=== PATIENT | male | born 1990 | race Caucasian/White ===

== ENCOUNTER → 2016-06-30 | Outpatient (CLI) | payer OTHER ==
[2016-06-30 11:14] LABS: ALANINE AMINOTRANSFERASE 89 Units/L (12-78); ALBUMIN 4.2 g/dL (3.4-5.0); ALKALINE PHOSPHATASE 78 Units/L (46-116); AMYLASE 35 Units/L (25-115); ASPARTATE AMINO TRANSFERASE 32 Units/L (15-37); BLOOD UREA NITROGEN 11 mg/dL (7-18); CALCIUM 9.5 mg/dL (8.5-10.1); CARBON DIOXIDE 28.4 mmol/L (21-32); CHLORIDE 105 mmol/L (98-107); CREATININE 1.09 mg/dL (0.70-1.30); GLUCOSE 94 mg/dL (65-99); LIPASE 107 Units/L (73-393); SODIUM 143 mmol/L (136-145); TOTAL PROTEIN 7.7 g/dL (6.4-8.2); eGFR BLACK RACES > 60 (>60); eGFR NON BLACK RACES > 60 (>60)
[2016-06-30 11:16] LABS: BASOPHILS % (AUTO) 0.3 % (0.2-1.0); EOSINOPHILS # (AUTO) 0.3 x10^3/uL (0.0-0.2); EOSINOPHILS % (AUTO) 3.8 % (0.9-2.9); HEMATOCRIT 47.6 % (42.0-54.0); HEMOGLOBIN 16.4 g/dL (13.5-18.0); LYMPHOCYTES # (AUTO) 2.2 X10^3/uL (1.3-2.9); MEAN CORPUSCULAR HGB CONC 34.5 g/dL (33.0-35.0); MEAN CORPUSCULAR VOLUME 84.2 fL (80.0-100.0); MEAN PLATELET VOLUME 7.4 fL (7.4-11.0); MONOCYTES # (AUTO) 0.4 x10^3/uL (0.3-0.8); MONOCYTES % (AUTO) 5.4 % (0.0-13.0); NEUTROPHILS # (AUTO) 4.6 x10^3/uL (2.2-4.8); NEUTROPHILS % (AUTO) 61.5 % (42.0-75.0); PLATELET COUNT 280 X10^3/uL (150.0-450.0); RED BLOOD COUNT 5.66 X10^6/uL (4.7-6.0); RED CELL DISTRIBUTION WIDTH 12.9 % (11.6-16.5); WHITE BLOOD COUNT 7.5 X10^3/uL (3.6-10.0)
--- NOTE | 2016-06-30 11:29 | US ---
Examination: Abdominal ultrasound. Clinical History: Abdominal pain, nausea. Technique: Real-time grayscale ultrasound was used to evaluate the upper abdomen. Comparison: None available. Findings: The gallbladder is suboptimally distended with no definite cholelithiasis, gallbladder wall thickeni ng or pericholecystic fluid noted. The common bile duct measures 2 mm in diameter and is within normal limits. No intrahepatic biliary ductal dilatation is noted. The liver is diffusely increased in echogenicity with attenuation of the ultrasound beam seen prop setter iorly, consistent with diffuse fatty infiltration of the liver. No focal hepatic mass is noted. The pancreas is obscured by bowel gas and could not be adequately evaluated. The right kidney measures 11.8 cm in length and is normal in echogenicity with no focal mass, hydron ephrosis or nephrolithiasis noted. Impression: 1. Diffuse fatty infiltration of the liver. Reported By:
== END ==
LOC: RAD 10:28
PROVIDERS: ATTEND Nurse Practitioner Family
DX: R10.84 Generalized abdominal pain (principal); R11.0 Nausea
CPT/HCPCS: 36415; 76705; 80053; 82150; 83690; 85025; 86677

== ENCOUNTER 2021-03-25 11:23 | Observation (INO) ==
[2021-03-25] MEDS ORDERED: TUSSIONEX PENNKINETIC SUSP PO PRN (13:19)
[2021-03-25] MEDS ORDERED: PHARMACY CONSULT - IVERMECTIN XX SCH (13:19)
[2021-03-25] MEDS: PULMICORT NEB TX 0.5 MG NEB SCH ×2 (13:48→21:55)
[2021-03-25 13:52] LABS: ABG ALLEN TEST POS; ABG BASE EXCESS 0.8 mmol/L (-2.0-2.0); ABG HCO3 25.3 mmol/L (22-26)
[2021-03-25 13:57] VITALS: BMI 36.5
[2021-03-25 13:59] LABS: BASOPHILS % (AUTO) 0 % (0.2-1.0); HEMATOCRIT 50.1 % (42.0-54.0); HEMOGLOBIN 17.1 g/dL (13.5-18.0); LYMPHOCYTES # (AUTO) 0.2 X10^3/uL (1.3-2.9); LYMPHOCYTES % (AUTO) 2.6 % (21.0-51.0); MEAN CORPUSCULAR HEMOGLOBIN 29.5 pg (27.0-34.0); MEAN CORPUSCULAR HGB CONC 34.1 g/dL (33.0-35.0); MEAN CORPUSCULAR VOLUME 86.4 fL (80.0-100.0); MEAN PLATELET VOLUME 7.1 fL (7.4-11.0); MONOCYTES # (AUTO) 0.1 x10^3/uL (0.3-0.8); MONOCYTES % (AUTO) 1.8 % (0.0-13.0); NEUTROPHILS # (AUTO) 8.1 x10^3/uL (2.2-4.8); NEUTROPHILS % (AUTO) 95.6 % (42.0-75.0); RED CELL DISTRIBUTION WIDTH 13.9 % (11.6-16.5); WHITE BLOOD COUNT 8.5 X10^3/uL (3.6-10.0)
[2021-03-25] MEDS: DUONEB 0.5 MG/3 MG (3 mL) NEB SCH ×2 (14:00→21:55)
[2021-03-25] MEDS ORDERED: NS 1/2 1,000 ML IV 1,000 ML IV ONE (14:09)
[2021-03-25 14:11] LABS: ALANINE AMINOTRANSFERASE 31 Units/L (12-78); ALKALINE PHOSPHATASE 42 Units/L (46-116); ASPARTATE AMINO TRANSFERASE 23 Units/L (15-37); BLOOD UREA NITROGEN 16 mg/dL (7-18); CARBON DIOXIDE 28.8 mmol/L (21-32); CHLORIDE 104 mmol/L (98-107); COR CA(FOR HYPOALB) 8.8 mg/dL (8.5-10.1); COR NA(FOR HYPERGLY) 142 mmol/L (136-145); CREATININE 1.02 mg/dL (0.70-1.30); SODIUM 141 mmol/L (136-145); TOTAL PROTEIN 6.7 g/dL (6.4-8.2); eGFR NON BLACK RACES > 60 (>60)
[2021-03-25] MEDS: LEVAQUIN PREMIX IV 750 MG 750 MG/150 ML BAG IV SCH (14:15)
[2021-03-25] MEDS: NS 1/2 1,000 ML IV 1,000 ML IV SCH (14:15)
[2021-03-25] MEDS: VITAMIN A PO SCH (14:15)
[2021-03-25] MEDS: SOLU-Medrol 40 MG VIAL IVP SCH ×3 (14:15→21:00)
[2021-03-25] MEDS: VITAMIN C PO SCH ×3 (14:16→21:00)
[2021-03-25] MEDS: IVERMECTIN PO SCH (14:16)
[2021-03-25] MEDS: LUVOX PO SCH ×2 (14:16→21:00)
[2021-03-25 14:19] LABS: BAND NEUTROPHILS % 3 % (0-10); PLATELET MORPHOLOGY COMMENT NORMAL (NORMAL)
[2021-03-25] MEDS: ZINC SULFATE PO SCH ×2 (14:19→21:00)
--- NOTE | 2021-03-25 15:38 | RAD ---
HISTORYCOVID+, COUGH, SOBSTUDYCHEST, 1 VIEWCOMPARISONNo recent comparison studiesTECHNIQUEPortable chest radiographFINDINGSThe lungs are hypoinflated. Peribronchial thickening is observed. No organized, radiodense airspace consolidation is appreciated. Subtle peribronchial opacities are seen within the left parahilar region and left lung base. The pleural spaces are clear. No free air or pneumothorax. Heart size is normal.IMPRESSIONLow lung volumes with central bronchial and peribronchial inflammatory changes in the setting of COVID-19 infection.No organized, consolidating infiltrates are identified at this time.Electronically signed by: DAKOTA GUZMÁN (Mar 25, 2021 15:38:17)
[2021-03-25] MEDS ORDERED: REMDESIVIR 200 MG in NS 250 ML IV 250 ML IV ONE (15:51)
[2021-03-25] MEDS: INDERAL LA 60 MG CAP PO SCH (17:33)
[2021-03-25] MEDS: FLONASE NASAL SPRAY ENOSTRIL SCH (21:00)
[2021-03-25] MEDS: CRESTOR TAB 10 MG PO SCH (21:00)
[2021-03-26] MEDS: NS 1/2 1,000 ML IV 1,000 ML IV SCH ×3 (06:01→17:27)
[2021-03-26] MEDS: SOLU-Medrol 40 MG VIAL IVP SCH ×3 (06:02→21:38)
[2021-03-26 06:15] LABS: BASOPHILS % (AUTO) 0.1 % (0.2-1.0); HEMOGLOBIN 15.8 g/dL (13.5-18.0); LYMPHOCYTES # (AUTO) 0.3 X10^3/uL (1.3-2.9); LYMPHOCYTES % (AUTO) 4.6 % (21.0-51.0); MEAN CORPUSCULAR HEMOGLOBIN 29.3 pg (27.0-34.0); MEAN CORPUSCULAR HGB CONC 33.7 g/dL (33.0-35.0); MONOCYTES # (AUTO) 0.4 x10^3/uL (0.3-0.8); NEUTROPHILS # (AUTO) 6.4 x10^3/uL (2.2-4.8); NEUTROPHILS % (AUTO) 90.3 % (42.0-75.0); RED CELL DISTRIBUTION WIDTH 13.9 % (11.6-16.5); WHITE BLOOD COUNT 7.1 X10^3/uL (3.6-10.0)
[2021-03-26] MEDS: DUONEB 0.5 MG/3 MG (3 mL) NEB SCH ×2 (06:42→13:45)
[2021-03-26 06:46] LABS: ALANINE AMINOTRANSFERASE 30 Units/L (12-78); ALBUMIN 2.7 g/dL (3.4-5.0); ALKALINE PHOSPHATASE 36 Units/L (46-116); ASPARTATE AMINO TRANSFERASE 23 Units/L (15-37); BLOOD UREA NITROGEN 14 mg/dL (7-18); CALCIUM 8.1 mg/dL (8.5-10.1); CARBON DIOXIDE 29.9 mmol/L (21-32); CHLORIDE 104 mmol/L (98-107); COR CA(FOR HYPOALB) 9.1 mg/dL (8.5-10.1); COR NA(FOR HYPERGLY) 140 mmol/L (136-145); CREATININE 1.04 mg/dL (0.70-1.30); SODIUM 139 mmol/L (136-145); TOTAL PROTEIN 6.2 g/dL (6.4-8.2); eGFR NON BLACK RACES > 60 (>60)
--- NOTE | 2021-03-26 07:09 | RAD ---
HISTORYCOVID-19 SOBSTUDYPortable AP chestCOMPARISONFebruary 2021FINDINGSStable-normal heart size and contour. Similar appearance of indistinct and nonspecific perihilar interstitial prominence without evidence for airspace component. The pleural spaces remain well defined without fluid collection.IMPRESSIONNo change. Subtle bilateral perihilar findings consistent with inflammatory process. No segmental or lobar pneumonia identified.Electronically signed by: JOSEFINA SCHAFFER (Mar 26, 2021 07:09:01)
[2021-03-26 07:56] LABS: PLATELET MORPHOLOGY COMMENT NORMAL (NORMAL)
[2021-03-26] MEDS: PULMICORT NEB TX 0.5 MG NEB SCH (08:57)
[2021-03-26] MEDS: VITAMIN C PO SCH ×4 (08:59→20:09)
[2021-03-26] MEDS: FLONASE NASAL SPRAY ENOSTRIL SCH ×2 (08:59→20:10)
[2021-03-26] MEDS: LEVAQUIN PREMIX IV 750 MG 750 MG/150 ML BAG IV SCH (08:59)
[2021-03-26] MEDS: IVERMECTIN PO SCH (08:59)
[2021-03-26] MEDS: VITAMIN A PO SCH (09:00)
[2021-03-26] MEDS: MOBIC TAB 15 MG PO SCH (09:00)
[2021-03-26] MEDS: LUVOX PO SCH ×2 (09:00→20:08)
[2021-03-26] MEDS: ZINC SULFATE PO SCH ×2 (09:01→20:08)
[2021-03-26] MEDS ORDERED: NS 1/2 1,000 ML IV 1,000 ML IV ONE ×2 (09:15→22:23)
[2021-03-26] MEDS: INDERAL LA 60 MG CAP PO SCH (09:18)
[2021-03-26] MEDS ORDERED: BENADRYL INJ 50 MG VIAL IVP ONE (10:09)
[2021-03-26] MEDS ORDERED: SOTROVIMAB (EUA) 500 MG, DRUG FILTER EXTENSION SET * 1 EA in NS 250 ML IV 250 ML IV ONE ×2 (10:09)
--- NOTE | 2021-03-26 10:43 | DR.UPDATE ---
H&P Update History and Physical Update: History and Physical reviewed and patient examined. Changes noted: Yes with the following: IS A 30 YEAR OLD PATIENT OF OURS. HE HAS BEEN TREATED IN THE OFFICE SINCE 03/21/20 FOR COVID-19. HE PRESENTED FOR FOLLOW UP TODAY WITH REPORTS OF INCREASED SHORTNESS OF BREATH AND COUGH. HE HAS TAKEN DOXYCYCLINE 100MG PO BID, FLUVOXAMINE 25MG DAILY, A MEDROL DOSEPACK, AND LEVAQUIN 750MG DAILY. HE DENIES IMPROVEMENT IN SYMPTOMS DESPITE COMPLIANCE WITH MEDICATIONS. HIS PMH INCLUDES HY PERLIPIDEMIA, HTN, SLEEP APNEA, BMI >30, CHOLECYSTECTOMY, TONSILLECTOMY, AND HERNIA REPAIR. HE WAS ADMITTED TO THE HOSPITAL FOR FURTHER EVALUATION AND TREATMENT OF BRONCHITIS DUE TO COVID-19, FAILED OUTPATIENT TREATMENT. ON ARRIVAL TO THE HOSPITAL, HIS VITALS WERE 98.5-107-22-95%RA-148/84. LABS WERE OBTAINED. WBC 8.5, HGB 17.1, HCT 50.1, D-DIMER 0.29, SODIUM 141, POTASSIUM 3.9, BUN 16, CREATININE 1.02, GLUCOSE 133, CALCIUM 8.0, ALK PHOS 42, CRP 35.50, ALBUMIN 3.0. ABG OBTAINED AND REVEALED: PH 7.420, PC02 39, P02 64, HC03 25.3, 02 SAT 92, A-A GRADIENT 37, FI02 21.0. BLOOD CULTURES WERE SET UP. A CHEST XRAY WAS OBTAINED AND REVEALED: Low lung volumes with central bronchial and peribronchial inflammatory changes in the setting of COVID-19 infection. No organized, consolidating infiltrates are identified at this time. HE WAS STARTED ON 1/2NS AT 75 ML/HR, LEVAQUIN 750 ML/HR, SOLU-MEDROL 80ML IV Q8H, DUONEBS TID, PULMICORT NEBS BID, VITAMIN C 1G QID, LUVOX 50MG PO BID, IVERMECTIN 42MG PO DAILY, VITAMIN A 10,000 PO DAILY, ZINC SULFATE 220MG PO BID, AND HIS HOME MEDICATIONS WERE RESUMED. WE WILL ADMINISTER SOTROVIMAB 500MG IV X 1 DOSE. OTHERWISE, WE WILL FOLLOW UP WITH AM LABS AND CONTINUE TO MONITOR. TIME SPENT ON CLINICAL ASSESSMENT, REVIEWING LABS AND IMAGING, DECISION MAKING, AND DOCUMENTATION GREATER THAN 75 MINUTES. H&P Reviewed: Yes Patient was examined?: Yes
[2021-03-26] MEDS ORDERED: BENADRYL INJ 50 MG VIAL ONE (11:40)
[2021-03-26] MEDS ORDERED: STERILE WATER IRRIGATION IR ONE (11:58)
[2021-03-26] MEDS: CRESTOR TAB 10 MG PO SCH (20:09)
[2021-03-27] MEDS: NS 1/2 1,000 ML IV 1,000 ML IV SCH ×2 (01:23→07:47)
[2021-03-27] MEDS: DUONEB 0.5 MG/3 MG (3 mL) NEB SCH ×3 (03:53→13:24)
[2021-03-27] MEDS: PULMICORT NEB TX 0.5 MG NEB SCH ×2 (03:53→09:29)
[2021-03-27] MEDS: SOLU-Medrol 40 MG VIAL IVP SCH ×2 (05:06→13:34)
[2021-03-27 05:30] LABS: BASOPHILS % (AUTO) 0 % (0.2-1.0); HEMATOCRIT 43.5 % (42.0-54.0); HEMOGLOBIN 14.7 g/dL (13.5-18.0); LYMPHOCYTES # (AUTO) 0.4 X10^3/uL (1.3-2.9); LYMPHOCYTES % (AUTO) 4.1 % (21.0-51.0); MEAN CORPUSCULAR HEMOGLOBIN 29.2 pg (27.0-34.0); MEAN CORPUSCULAR HGB CONC 33.8 g/dL (33.0-35.0); MEAN CORPUSCULAR VOLUME 86.5 fL (80.0-100.0); MONOCYTES # (AUTO) 0.3 x10^3/uL (0.3-0.8); MONOCYTES % (AUTO) 3.9 % (0.0-13.0); NEUTROPHILS # (AUTO) 8.1 x10^3/uL (2.2-4.8); RED BLOOD COUNT 5.03 X10^6/uL (4.7-6.0); RED CELL DISTRIBUTION WIDTH 13.9 % (11.6-16.5); WHITE BLOOD COUNT 8.8 X10^3/uL (3.6-10.0)
[2021-03-27 05:47] LABS: ALANINE AMINOTRANSFERASE 26 Units/L (12-78); ALBUMIN 2.3 g/dL (3.4-5.0); ALKALINE PHOSPHATASE 33 Units/L (46-116); ASPARTATE AMINO TRANSFERASE 20 Units/L (15-37); BLOOD UREA NITROGEN 17 mg/dL (7-18); CALCIUM 7.9 mg/dL (8.5-10.1); CHLORIDE 106 mmol/L (98-107); COR CA(FOR HYPOALB) 9.3 mg/dL (8.5-10.1); COR NA(FOR HYPERGLY) 141 mmol/L (136-145); CREATININE 0.84 mg/dL (0.70-1.30); SODIUM 140 mmol/L (136-145); TOTAL PROTEIN 5.5 g/dL (6.4-8.2); eGFR NON BLACK RACES > 60 (>60)
[2021-03-27 06:54] LABS: BAND NEUTROPHILS % 3 % (0-10); PLATELET MORPHOLOGY COMMENT NORMAL (NORMAL)
--- NOTE | 2021-03-27 07:22 | RAD ---
[facility] chestCOMPARISONFebruary 2021FINDINGSHeart size is similar and upper normal. There is slight interval increase in indistinct bilateral para densities, left greater than right. No airspace consolidation, pneumothorax or pleural fluid demonstrated.IMPRESSIONWith the given history of COVID-19, the radiographic findings are likely related to increasing atypical pneumonia pattern. No additional abnormality is otherwise noted.Electronically signed by: JOSEFINA SCHAFFER (Mar 27, 2021 07:20:55)
[2021-03-27] MEDS ORDERED: BENADRYL INJ 50 MG VIAL IVP ONE ×2 (07:48→09:00)
[2021-03-27] MEDS: VITAMIN C PO SCH ×2 (08:01→13:33)
[2021-03-27] MEDS: VITAMIN A PO SCH (08:01)
[2021-03-27] MEDS: ZINC SULFATE PO SCH (08:01)
[2021-03-27] MEDS: LUVOX PO SCH (08:01)
[2021-03-27] MEDS: FLONASE NASAL SPRAY ENOSTRIL SCH (08:01)
[2021-03-27] MEDS: LEVAQUIN PREMIX IV 750 MG 750 MG/150 ML BAG IV SCH (08:01)
[2021-03-27] MEDS: MOBIC TAB 15 MG PO SCH (08:01)
[2021-03-27] MEDS ORDERED: SOTROVIMAB (EUA) 500 MG, DRUG FILTER EXTENSION SET * 1 EA in NS 250 ML IV 250 ML IV NR ×2 (09:00)
[2021-03-27] MEDS ORDERED: TYLENOL 325 MG TAB PO ONE (09:15)
[2021-03-27] MEDS ORDERED: BENADRYL INJ 50 MG VIAL ONE (09:55)
[2021-03-27] MEDS ORDERED: DRUG FILTER EXTENSION SET ONE (09:56)
[2021-03-27] MEDS: IVERMECTIN PO SCH (09:59)
[2021-03-27] MEDS: INDERAL LA 60 MG CAP PO SCH (09:59)
[2021-03-27] MEDS ORDERED: STERILE WATER IRRIGATION IR ONE (13:05)
[2021-03-27 13:41] VITALS: BP 120/68
== END 2021-03-27 15:45 | disposition home or self-care (01) ==
LOC: MED/SURG
PROVIDERS: ADMIT Internal Medicine; ATTEND Internal Medicine
DX: E78.2 Mixed hyperlipidemia; R06.02 Shortness of breath; I10 Essential (primary) hypertension; U07.1 COVID-19; J20.8 Acute bronchitis due to other specified organisms; R79.82 Elevated C-reactive protein (CRP)

== ENCOUNTER 2021-04-08 11:43 | Observation (INO) ==
[2021-04-08] MEDS: PULMICORT NEB TX 0.5 MG NEB SCH ×2 (14:25→21:24)
[2021-04-08] MEDS ORDERED: NS 1/2 1,000 ML IV 1,000 ML IV ONE (14:46)
[2021-04-08] MEDS: VSL#3 PO SCH (14:55)
[2021-04-08] MEDS: NORCO 10/325 TAB PO PRN (14:55)
[2021-04-08] MEDS: TESSALON PERLES PO SCH ×2 (14:56→22:27)
[2021-04-08] MEDS: NS 1/2 1,000 ML IV 1,000 ML IV SCH (14:56)
[2021-04-08] MEDS: LEVAQUIN PREMIX IV 750 MG 750 MG/150 ML BAG IV SCH (14:56)
[2021-04-08] MEDS: FORTAZ or TAZICEF VIAL INJ 1 G in NS 100 ML IV 100 ML IV SCH ×2 (14:56→21:21)
[2021-04-08] MEDS: ROBITUSSIN DM PO SCH ×3 (14:56→20:43)
[2021-04-08] MEDS ORDERED: FORTAZ or TAZICEF VIAL INJ IVP SCH (15:00)
--- NOTE | 2021-04-08 15:01 | RAD ---
HISTORYPneumoniaSTUDYChest AP [id number]/07/2022FINDINGSThe heart is within normal limits in size. The shani are normal. There is some subtle ground-glass infiltrates residual in the right upper lobe. Remainder of the lung covarrubias are clear. No pleural effusion or pneumothorax is identified. Bony thorax is unremarkable.IMPRESSIONSmall residual ground-glass infiltrate right upper lobe. The remainder of the lung covarrubias are now clearElectronically signed by: JAIRO LONGORIA (Apr 08, 2021 14:58:46)
[2021-04-08 15:03] LABS: ABG BASE EXCESS 6.4 mmol/L (-2.0-2.0)
[2021-04-08 15:04] LABS: ABG ALLEN TEST POS; ABG HCO3 30.5 mmol/L (22-26)
[2021-04-08 15:12] LABS: BASOPHILS % (AUTO) 0.2 % (0.2-1.0); EOSINOPHILS # (AUTO) 0.2 x10^3/uL (0.0-0.2); EOSINOPHILS % (AUTO) 1.6 % (0.9-2.9); HEMATOCRIT 49.6 % (42.0-54.0); HEMOGLOBIN 16.8 g/dL (13.5-18.0); LYMPHOCYTES # (AUTO) 1.2 X10^3/uL (1.3-2.9); MEAN CORPUSCULAR HEMOGLOBIN 29.8 pg (27.0-34.0); MEAN CORPUSCULAR HGB CONC 33.9 g/dL (33.0-35.0); MEAN CORPUSCULAR VOLUME 87.8 fL (80.0-100.0); MEAN PLATELET VOLUME 7.1 fL (7.4-11.0); MONOCYTES # (AUTO) 0.8 x10^3/uL (0.3-0.8); NEUTROPHILS # (AUTO) 7.4 x10^3/uL (2.2-4.8); NEUTROPHILS % (AUTO) 77.2 % (42.0-75.0); RED BLOOD COUNT 5.65 X10^6/uL (4.7-6.0); RED CELL DISTRIBUTION WIDTH 14.2 % (11.6-16.5); WHITE BLOOD COUNT 9.6 X10^3/uL (3.6-10.0)
[2021-04-08 15:33] LABS: ALANINE AMINOTRANSFERASE 166 Units/L (12-78); ALBUMIN 2.8 g/dL (3.4-5.0); ALKALINE PHOSPHATASE 52 Units/L (46-116); ASPARTATE AMINO TRANSFERASE 55 Units/L (15-37); BLOOD UREA NITROGEN 14 mg/dL (7-18); CALCIUM 7.9 mg/dL (8.5-10.1); CARBON DIOXIDE 31.4 mmol/L (21-32); CHLORIDE 101 mmol/L (98-107); CKMB % 1.3 % (<4); COR CA(FOR HYPOALB) 8.9 mg/dL (8.5-10.1); CREATINE KINASE 94 Units/L (39-308); CREATINE KINASE MB 1.2 ng/mL (0-4.0); SODIUM 138 mmol/L (136-145); TOTAL PROTEIN 5.9 g/dL (6.4-8.2); eGFR NON BLACK RACES > 60 (>60)
[2021-04-08] MEDS: DUONEB 0.5 MG/3 MG (3 mL) NEB SCH ×2 (16:19→21:24)
--- NOTE | 2021-04-08 16:45 | DR.UPDATE ---
H&P Update History and Physical Update: History and Physical reviewed and patient examined. Changes noted: Yes with the following: WAS RECENTLY HOSPITALIZED FOR TREATMENT OF BRONCHITIS DUE TO COVID-19. HE WAS HOSPITALIZED FROM 03/25-03/27. WHILE IN THE HOSPITAL, HE WAS GIVEN THE SOTROVIMAB MONOCLONAL ANTIBODY INFUSION. HE WAS SENT HOME FROM THE HOSPITAL ON A MEDROL DOSEPACK, FLUVOXAMINE 50MG PO BID, TESSALON PERLES 200MG TID, LEVAQUIN 750MG PO DAILY, PULMICORT NEB [place] BID, AND DUONEBS TID. HE PRESENTED TO THE OFF ICE TODAY WITH REPORTS OF WORSENING SHORTNESS OF BREATH, COUGH, AND DECREASED OXYGEN SATURATIONS, DESPITE COMPLIANCE WITH MEDICATIONS. HE REPORTS THAT HIS OXYGEN SATURATIONS DROP TO THE UPPER 70S AT TIMES WHILE ON ROOM AIR. PATIENT WAS READMITTED TO THE HOSPITAL FOR FURTHER EVALUATION AND TREATMENT OF BRONCHOPNEUMONIA, HYPOXIA, POST COVID SYNDROME. ON ADMISSION, WE WILL OBTAIN LABS, ABG, CHEST XRAY, CHEST CTA. WE WILL START 1/2NS AT 75 ML/HR, LEVAQUIN 750MG IV DAILY, FORTAZ 1G IV TID, SOLU-MEDROL 80MG IV Q8H, ROBITUSSIN DM 10ML PO QID, TESSALON PERLES 200MG PO TID, TUSSIONEX 5ML PO Q12H, DUONEBS TID, PULMICORT NEBS BID, VSL 2 CAPS PO DAILY, AND NORCO 10/325MG PO Q6H PRN PAIN. OTHERWISE, WE WILL FOLLOW UP WITH AM LABS AND CHEST XRAY AND CONTINUE TO MONITOR. TIME SPENT ON CLINICAL ASSESSMENT, REVIEWING LABS AND IMAGING, DECISION MAKING, AND DOCUMENTATION WAS GREATER THAN 75 MINUTES. Prescription drug monitoring program results: PDMP was not reviewed H&P Reviewed: Yes Patient was examined?: Yes
[2021-04-08 18:46] LABS: CKMB % 1.2 % (<4); CREATINE KINASE MB 1.1 ng/mL (0-4.0)
[2021-04-08] MEDS: CRESTOR TAB 10 MG PO SCH (20:33)
[2021-04-08] MEDS: TUSSIONEX PENNKINETIC SUSP PO SCH (20:41)
[2021-04-08] MEDS: INDERAL LA 60 MG CAP PO SCH (20:43)
[2021-04-08 22:04] LABS: CKMB % 1.3 % (<4); CREATINE KINASE 80 Units/L (39-308); CREATINE KINASE MB < 1.0 ng/mL (0-4.0)
[2021-04-08] MEDS: SOLU-Medrol 40 MG VIAL IVP SCH (22:26)
[2021-04-09] MEDS: SOLU-Medrol 40 MG VIAL IVP SCH ×3 (05:40→23:18)
[2021-04-09] MEDS: TESSALON PERLES PO SCH ×3 (05:41→23:18)
[2021-04-09] MEDS: FORTAZ or TAZICEF VIAL INJ 1 G in NS 100 ML IV 100 ML IV SCH ×3 (05:42→23:18)
[2021-04-09] MEDS: NORCO 10/325 TAB PO PRN ×3 (05:44→20:35)
[2021-04-09] MEDS: NS 1/2 1,000 ML IV 1,000 ML IV SCH ×3 (06:09→23:18)
[2021-04-09] MEDS: DUONEB 0.5 MG/3 MG (3 mL) NEB SCH ×3 (06:26→20:10)
[2021-04-09 06:49] LABS: BASOPHILS % (AUTO) 0.3 % (0.2-1.0); EOSINOPHILS # (AUTO) 0.1 x10^3/uL (0.0-0.2); EOSINOPHILS % (AUTO) 1.5 % (0.9-2.9); HEMATOCRIT 47.2 % (42.0-54.0); HEMOGLOBIN 15.9 g/dL (13.5-18.0); LYMPHOCYTES # (AUTO) 1.3 X10^3/uL (1.3-2.9); MEAN CORPUSCULAR HEMOGLOBIN 29.9 pg (27.0-34.0); MEAN CORPUSCULAR HGB CONC 33.6 g/dL (33.0-35.0); MEAN CORPUSCULAR VOLUME 88.8 fL (80.0-100.0); MEAN PLATELET VOLUME 7.2 fL (7.4-11.0); MONOCYTES # (AUTO) 0.7 x10^3/uL (0.3-0.8); NEUTROPHILS # (AUTO) 5.8 x10^3/uL (2.2-4.8); NEUTROPHILS % (AUTO) 73.2 % (42.0-75.0); RED BLOOD COUNT 5.31 X10^6/uL (4.7-6.0); RED CELL DISTRIBUTION WIDTH 14.8 % (11.6-16.5); WHITE BLOOD COUNT 7.9 X10^3/uL (3.6-10.0)
[2021-04-09 07:05] LABS: ALANINE AMINOTRANSFERASE 139 Units/L (12-78); ALBUMIN 2.5 g/dL (3.4-5.0); ALKALINE PHOSPHATASE 47 Units/L (46-116); ASPARTATE AMINO TRANSFERASE 36 Units/L (15-37); BLOOD UREA NITROGEN 12 mg/dL (7-18); CALCIUM 7.6 mg/dL (8.5-10.1); CARBON DIOXIDE 30.1 mmol/L (21-32); CHLORIDE 102 mmol/L (98-107); COR CA(FOR HYPOALB) 8.8 mg/dL (8.5-10.1); CREATININE 0.85 mg/dL (0.70-1.30); SODIUM 138 mmol/L (136-145); TOTAL PROTEIN 5.6 g/dL (6.4-8.2); eGFR NON BLACK RACES > 60 (>60)
--- NOTE | 2021-04-09 07:10 | RAD ---
HISTORYBRONCHOPNEUMONIA, HYPOXIA, POST COVID SYNDROMESTUDYCHEST, 1 [id number]/18/2022FINDINGSThe cardiomediastinal silhouette is stable. Faint bilateral airspace opacities. No pneumothorax or effusion the bony thorax appears intact.IMPRESSIONFaint bilateral airspace opacities.Electronically signed by: JAIRO LONGORIA (Apr 09, 2021 07:08:35)
[2021-04-09] MEDS ORDERED: NS 1/2 1,000 ML IV 1,000 ML IV ONE (08:36)
[2021-04-09] MEDS: PULMICORT NEB TX 0.5 MG NEB SCH ×2 (09:05→20:10)
[2021-04-09] MEDS: VSL#3 PO SCH (09:07)
[2021-04-09] MEDS: TUSSIONEX PENNKINETIC SUSP PO SCH ×2 (09:07→23:16)
[2021-04-09] MEDS: LEVAQUIN PREMIX IV 750 MG 750 MG/150 ML BAG IV SCH (09:07)
[2021-04-09] MEDS: ROBITUSSIN DM PO SCH ×4 (09:07→23:17)
[2021-04-09] MEDS: INDERAL LA 60 MG CAP PO SCH (22:33)
[2021-04-09] MEDS: CRESTOR TAB 10 MG PO SCH (22:33)
[2021-04-10] MEDS ORDERED: NS 1/2 1,000 ML IV 1,000 ML IV ONE ×2 (02:39→16:15)
[2021-04-10] MEDS: NS 1/2 1,000 ML IV 1,000 ML IV SCH ×3 (02:41→23:00)
[2021-04-10] MEDS: DUONEB 0.5 MG/3 MG (3 mL) NEB SCH ×3 (05:29→21:07)
[2021-04-10] MEDS: FORTAZ or TAZICEF VIAL INJ 1 G in NS 100 ML IV 100 ML IV SCH ×3 (06:11→23:09)
[2021-04-10] MEDS: SOLU-Medrol 40 MG VIAL IVP SCH ×3 (06:11→23:07)
[2021-04-10] MEDS: TESSALON PERLES PO SCH ×3 (06:12→23:04)
[2021-04-10 06:18] LABS: BASOPHILS % (AUTO) 0.2 % (0.2-1.0); HEMATOCRIT 44.3 % (42.0-54.0); HEMOGLOBIN 14.8 g/dL (13.5-18.0); LYMPHOCYTES # (AUTO) 0.4 X10^3/uL (1.3-2.9); LYMPHOCYTES % (AUTO) 5.8 % (21.0-51.0); MEAN CORPUSCULAR HEMOGLOBIN 29.4 pg (27.0-34.0); MEAN CORPUSCULAR HGB CONC 33.4 g/dL (33.0-35.0); MEAN CORPUSCULAR VOLUME 88.2 fL (80.0-100.0); MEAN PLATELET VOLUME 7.5 fL (7.4-11.0); MONOCYTES # (AUTO) 0.3 x10^3/uL (0.3-0.8); MONOCYTES % (AUTO) 3.7 % (0.0-13.0); NEUTROPHILS # (AUTO) 6.9 x10^3/uL (2.2-4.8); NEUTROPHILS % (AUTO) 90.3 % (42.0-75.0); RED BLOOD COUNT 5.02 X10^6/uL (4.7-6.0); RED CELL DISTRIBUTION WIDTH 14.6 % (11.6-16.5); WHITE BLOOD COUNT 7.6 X10^3/uL (3.6-10.0)
[2021-04-10] MEDS: NORCO 10/325 TAB PO PRN ×3 (06:22→23:03)
[2021-04-10 06:37] LABS: ALANINE AMINOTRANSFERASE 97 Units/L (12-78); ALBUMIN 2.6 g/dL (3.4-5.0); ALKALINE PHOSPHATASE 45 Units/L (46-116); ASPARTATE AMINO TRANSFERASE 15 Units/L (15-37); BLOOD UREA NITROGEN 10 mg/dL (7-18); CALCIUM 7.7 mg/dL (8.5-10.1); CARBON DIOXIDE 26.7 mmol/L (21-32); CHLORIDE 103 mmol/L (98-107); COR CA(FOR HYPOALB) 8.8 mg/dL (8.5-10.1); COR NA(FOR HYPERGLY) 143 mmol/L (136-145); CREATININE 0.96 mg/dL (0.70-1.30); SODIUM 140 mmol/L (136-145); TOTAL PROTEIN 5.6 g/dL (6.4-8.2); eGFR NON BLACK RACES > 60 (>60)
[2021-04-10 07:01] LABS: PLATELET MORPHOLOGY COMMENT NORMAL (NORMAL)
[2021-04-10] MEDS: LEVAQUIN PREMIX IV 750 MG 750 MG/150 ML BAG IV SCH (08:44)
[2021-04-10] MEDS: TUSSIONEX PENNKINETIC SUSP PO SCH ×2 (08:44→23:02)
[2021-04-10] MEDS: ROBITUSSIN DM PO SCH ×4 (08:44→23:02)
[2021-04-10] MEDS: VSL#3 PO SCH (08:44)
--- NOTE | 2021-04-10 09:53 | PCM.PROG ---
Progress Note - Progress Note for Day of Date of Exam: 04/09/21 - Subjective Subjective: WAS ADMITTED TO THE HOSPITAL FOR TREATMENT OF BRONCHOPNEUMONIA, HYPOXIA, POST COVID SYNDROME. TODAY, HE IS ALERT AND ORIENTED, LYING IN BED ON MORNING ROUNDS. HE CONTINUES WITH COMPLAINTS OF COUGH, SHORTNESS OF BREATH, AND GENERALIZED WEAKNESS. HE DOES ADMIT TO SLIGHT IMPROVEMENT IN SYMPTOMS SINCE ADMISSION. HE IS CURRENTLY UTILIZING OXYGEN VIA NASAL CANNULA AT 2 LPM. HIS SATURATIONS HAVE BEEN 93-98% THIS MORNING AND THROUGHOUT THE [facility]. HE HAS ALSO UTILIZED THE CPAP AT NIGHT. ON EXAMINATION, HEART IS REGULAR IN RATE AND RHYTHM. BILATERAL LUNGS ARE NOTED WITH RHONCHI THROUGHOUT. HIS VITALS THIS MORNING ARE: 97.6-97-20-93%-132/73. LABS WERE OBTAINED. WBC 7.6, HGB 14.8, HCT 44.3, SODIUM 140, POTASSIUM 4.3, BUN 10, CREATININE 0.96, GLUCOSE 232, CALCIUM 7.7, ALT 97, ALK PHOS 45, TOTAL PROTEIN 5.6, ALBUMIN 2.6. BLOOD CULTURES ARE PENDING. A CHEST XRAY WAS OBTAINED AND REVEALED: Faint bilateral airspace opacities. HE IS CURRENTLY RECEIVING 1/2NS AT 75 ML/HR, LEVAQUIN 750MG IV DAILY, FORTAZ 1G IV TID, SOLU-MEDROL 80MG IV Q8H, ROBITUSSIN DM 10ML PO QID, TESSALON PERLES 200MG PO TID, TUSSIONEX 5ML PO Q12H, DUONEBS TID, PULMICORT NEBS BID, VSL 2 CAPS PO DAILY, AND NORCO 10/325MG PO Q6H PRN PAIN. HIS HOME MEDICATIONS WERE RESUMED. WE WILL CONTINUE WITH CURRENT PLAN OF CARE TODAY. OTHERWISE, WE PLAN TO FOLLOW UP WITH AM LABS AND CHEST XRAY AND CONTINUE TO MONITOR. TIME SPENT ON CLINICAL ASSESSMENT, REVIEWING LABS AND IMAGING, DECISION MAKING, AND DOCUMENTATION WAS GREATER THAN 45 MINUTES. - Past Medical Family Social History Past Med/Fam/Surg Hx: No changes since H&P Allergies: Allergies No Known Drug Allergies Allergy (Verified 03/25/21 13:35) - Review of Systems ROS: No change since H&P - Vital Signs and I&O's Vital Signs: Temperature 98.1 F Pulse Rate [Right Brachial] 117 Pulse Rate 122 Respiratory Rate 20 Blood Pressure [Right Arm] 135/64 Blood Pressure [Left Arm] 135/82 O2 Sat by Pulse Oximetry 96 Intake and Output: Intake & Output 04/07/21 04/08/21 04/09/21 04/10/21 11:59 11:59 11:59 11:59 Intake Total 1933 4363 / 4363 Output Total 1200 / 1200 Balance 1933 3163 / 3163 - Physical Exam Oriented: Normal Eyes: Normal Ear: Normal Nose: Normal Throat: Normal Respiratory: Generalized, Diminished, Rhonchi Cardiovascular: Normal : Normal Auscultation: Bowel Sounds: Normal Palpation: Normal Tenderness: Normal Skin: Normal Musculoskeletal: Normal Psychiatric: Normal Mood Description: Calm Affect: Normal Speech Pattern: Clear, Appropriate - Laboratory and Diagnostics Result Diagrams: 04/10/21 05:44 04/10/21 05:44 Labs: 04/08/21 14:48 Blood Blood Culture - Preliminary 04/08/21 14:48 Blood Blood Culture - Preliminary Laboratory WBC 7.6 X10^3/uL (3.6-10.0) 04/10/21 05:44 RBC 5.02 X10^6/uL (4.7-6.0) 04/10/21 05:44 Hgb 14.8 g/dL (13.5-18.0) 04/10/21 05:44 Hct 44.3 % (42.0-54.0) 04/10/21 05:44 MCV 88.2 fL (80.0-100.0) 04/10/21 05:44 MCH 29.4 pg (27.0-34.0) 04/10/21 05:44 MCHC 33.4 g/dL (33.0-35.0) 04/10/21 05:44 RDW 14.6 % (11.6-16.5) 04/10/21 05:44 Plt Count 152 X10^3/uL (150.0-450.0) 04/10/21 05:44 Plt Count Comment Adequate (ADEQUATE) 04/10/21 05:44 MPV 7.5 fL (7.4-11.0) 04/10/21 05:44 Neut % (Auto) 90.3 % (42.0-75.0) H 04/10/21 05:44 Lymph % (Auto) 5.8 % (21.0-51.0) L 04/10/21 05:44 [place] % (Auto) 3.7 % (0.0-13.0) 04/10/21 05:44 Eos % (Auto) 0.0 % (0.9-2.9) L 04/10/21 05:44 Baso % (Auto) 0.2 % (0.2-1.0) 04/10/21 05:44 Neut # (Auto) 6.9 x10^3/uL (2.2-4.8) H 04/10/21 05:44 Lymph # (Auto) 0.4 X10^3/uL (1.3-2.9) L 04/10/21 05:44 [place] # (Auto) 0.3 x10^3/uL (0.3-0.8) 04/10/21 05:44 Eos # (Auto) 0.0 x10^3/uL (0.0-0.2) 04/10/21 05:44 Baso # (Auto) 0.0 X10^3/uL (0.0-0.1) 04/10/21 05:44 Absolute Nucleated RBC 0.0 /100WBC 04/10/21 05:44 Total Counted 100 04/10/21 05:44 Neutrophils % (Manual) 91 % (39-76) H 04/10/21 05:44 Lymphocytes % (Manual) 5 % (13-43) L 04/10/21 05:44 Monocytes % (Manual) 4 % (4-9) 04/10/21 05:44 Plt Morphology Comment Normal (NORMAL) 04/10/21 05:44 RBC Morphology Normal (NORMAL) 04/10/21 05:44 D-Dimer 0.65 ug/ml (0.0-0.57) H* 04/08/21 14:48 Sample Site Rrad 04/08/21 14:58 ABG pH 7.480 (7.35-7.45) H 04/08/21 14:58 ABG pCO2 41.0 mmHg (35.0-45.0) 04/08/21 14:58 ABG pO2 93.0 mmHg (80.0-100.0) 04/08/21 14:58 ABG HCO3 30.5 mmol/L (22-26) H* 04/08/21 14:58 ABG O2 Saturation 98.0 % (90-100) 04/08/21 14:58 ABG Base Excess 6.4 mmol/L (-2.0-2.0) H 04/08/21 14:58 Sreedhar Test Pos 04/08/21 14:58 A-a Gradient 55.0 mmHg 04/08/21 14:58 FiO2 28.0 04/08/21 14:58 Blood Gas Comments Pt lemuel well elj 04/08/21 14:58 Sodium 140 mmol/L (136-145) 04/10/21 05:44 Corrected Sodium 143 mmol/L (136-145) 04/10/21 05:44 Potassium 4.3 mmol/L (3.5-5.1) 04/10/21 05:44 Chloride 103 mmol/L (98-107) 04/10/21 05:44 Carbon Dioxide 26.7 mmol/L (21-32) 04/10/21 05:44 BUN 10 mg/dL (7-18) 04/10/21 05:44 Creatinine 0.96 mg/dL (0.70-1.30) 04/10/21 05:44 Est GFR (MDRD) Af Amer > 60 (>60) 04/10/21 05:44 Est GFR (MDRD) Non-Af > 60 (>60) 04/10/21 05:44 Glucose 232 mg/dL (65-99) H 04/10/21 05:44 Calcium 7.7 mg/dL (8.5-10.1) L 04/10/21 05:44 Corrected Calcium 8.8 mg/dL (8.5-10.1) 04/10/21 05:44 Total Bilirubin 0.50 mg/dL (0.2-1.0) 04/10/21 05:44 AST 15 Units/L (15-37) 04/10/21 05:44 ALT 97 Units/L (12-78) H 04/10/21 05:44 Alkaline Phosphatase 45 Units/L (46-116) L 04/10/21 05:44 Creatine Kinase 80 Units/L (39-308) 04/08/21 21:35 CK-MB (CK-2) < 1.0 ng/mL (0-4.0) 04/08/21 21:35 CK/CKMB % Calc 1.3 % (<4) 04/08/21 21:35 Troponin I High Sens 15.0 ng/L (4.0-60.0) 04/08/21 21:35 C-Reactive Protein 5.10 mg/L (0-3.0) H 04/08/21 14:48 Total Protein 5.6 g/dL (6.4-8.2) L 04/10/21 05:44 Albumin 2.6 g/dL (3.4-5.0) L 04/10/21 05:44 Globulin 3.0 g/dL (2.5-4.5) 04/10/21 05:44 Albumin/Globulin Ratio 0.9 Ratio (1.1-2.1) L 04/10/21 05:44 - Plan (1) Pneumonia Status: Acute Qualifiers: Pneumonia type: due to unspecified organism Laterality: bilateral Lung location: unspecified part of lung Qualified Code(s): J18.9 - Pneumonia, unspecified organism Plan: IV FLUIDS, IV ANTIBIOTICS, IV STEROIDS, NEB TX, TESSALON, TUSSIONEX, RESUME HOME MEDS, SUPPLEMENTAL OXYGEN (2) Hypoxia Status: Acute (3) Post-COVID syndrome Status: Acute
[2021-04-10] MEDS: PULMICORT NEB TX 0.5 MG NEB SCH ×2 (09:56→21:07)
--- NOTE | 2021-04-10 11:04 | RAD ---
HISTORYsob, bronchopneumonia, hypoxia, post covidSTUDYCHEST, 1 [id number]/2022FINDINGSThe cardiomediastinal silhouette is stable. Hypoventilatory exam with chronic interstitial markings. Improved aeration in the lungs. No pneumothorax. The bony thorax appears intact.IMPRESSIONImproving aeration in the lungs.Electronically signed by: JAIRO LONGORIA (Apr 10, 2021 11:03:08)
--- NOTE | 2021-04-10 14:36 | PCM.PROG ---
Progress Note - Progress Note for Day of Date of Exam: 04/10/21 - Subjective Subjective: WAS ADMITTED TO THE HOSPITAL FOR TREATMENT OF BRONCHOPNEUMONIA, HYPOXIA, POST COVID SYNDROME. TODAY, HE IS ALERT AND ORIENTED, LYING IN BED ON MORNING ROUNDS. HE CONTINUES WITH COMPLAINTS OF COUGH, SHORTNESS OF BREATH, AND GENERALIZED WEAKNESS. HE DOES ADMIT TO SLIGHT IMPROVEMENT IN SYMPTOMS SINCE ADMISSION. HE IS CURRENTLY UTILIZING OXYGEN VIA NASAL CANNULA AT 2 LPM. HIS SATURATIONS HAVE BEEN 92-98% THIS MORNING AND THROUGHOUT THE NGT. HE HAS ALSO UTILIZED THE CPAP AT NIGHT. ON EXAMINATION, HE IS TACHYCARDIC WITH HR 110-120 BPM. BILATERAL LUNGS ARE NOTED WITH RHONCHI THROUGHOUT. HIS VITALS THIS MORNING ARE: 98.1-112-20-96%-135/64. LABS WERE OBTAINED. WBC 7.6, HGB 14.8, HCT 44.3, SODIUM 140, POTASSIUM 4.3, BUN 10, CREATININE 0.96, GLUCOSE 232, CALCIUM 7.7, ALT 97, ALK PHOS 45, TOTAL PROTEIN 5.6, ALBUMIN 2.6. BLOOD CULTURES ARE PENDING. A CHEST XRAY WAS OBTAINED AND REVEALED: cardiomediastinal silhouette is stable. Hypoventilatory exam with chronic interstitial markings. Improved aeration in the lungs. No pneumothorax. The bony thorax appears intact. HE IS CURRENTLY RECEIVING 1/2NS AT 75 ML/HR, LEVAQUIN 750MG IV DAILY, FORTAZ 1G IV TID, SOLU-MEDROL 80MG IV Q8H, ROBITUSSIN DM 10ML PO QID, TESSALON PERLES 200MG PO TID, TUSSIONEX 5ML PO Q12H, DUONEBS TID, PULMICORT NEBS BID, VSL 2 CAPS PO DAILY, AND NORCO 10/325MG PO Q6H PRN PAIN. HIS HOME MEDICATIONS WERE RESUMED. WE WILL CONTINUE WITH CURRENT PLAN OF CARE TODAY. OTHERWISE, WE PLAN TO FOLLOW UP WITH AM LABS AND CHEST XRAY AND CONTINUE TO MONITOR. TIME SPENT ON CLINICAL ASSESSMENT, REVIEWING LABS AND IMAGING, DECISION MAKING, AND DOCUMENTATION WAS GREATER THAN 45 MINUTES. - Past Medical Family Social History Past Med/Fam/Surg Hx: No changes since H&P Allergies: Allergies No Known Drug Allergies Allergy (Verified 03/25/21 13:35) - Review of Systems ROS: No change since H&P - Vital Signs and I&O's Vital Signs: Temperature 98.1 F Pulse Rate [Right Brachial] 117 Pulse Rate 112 Respiratory Rate 20 Blood Pressure [Right Arm] 135/64 Blood Pressure [Left Arm] 135/82 O2 Sat by Pulse Oximetry 94 Intake and Output: Intake & Output 04/08/21 04/09/21 04/10/21 04/11/21 11:59 11:59 11:59 11:59 Intake Total 1933 4363 / 4363 Output Total 1200 / 1200 Balance 1933 3163 / 3163 - Physical Exam Oriented: Normal Eyes: Normal Ear: Normal Nose: Normal Throat: Normal Respiratory: Generalized, Diminished, Rhonchi Cardiovascular: Normal : Normal Auscultation: Bowel Sounds: Normal Palpation: Normal Tenderness: Normal Skin: Normal Musculoskeletal: Normal Psychiatric: Normal Mood Description: Calm Affect: Normal Speech Pattern: Clear, Appropriate - Laboratory and Diagnostics Result Diagrams: 04/10/21 05:44 04/10/21 05:44 Labs: 04/08/21 14:48 Blood Blood Culture - Preliminary 04/08/21 14:48 Blood Blood Culture - Preliminary Laboratory WBC 7.6 X10^3/uL (3.6-10.0) 04/10/21 05:44 RBC 5.02 X10^6/uL (4.7-6.0) 04/10/21 05:44 Hgb 14.8 g/dL (13.5-18.0) 04/10/21 05:44 Hct 44.3 % (42.0-54.0) 04/10/21 05:44 MCV 88.2 fL (80.0-100.0) 04/10/21 05:44 MCH 29.4 pg (27.0-34.0) 04/10/21 05:44 MCHC 33.4 g/dL (33.0-35.0) 04/10/21 05:44 RDW 14.6 % (11.6-16.5) 04/10/21 05:44 Plt Count 152 X10^3/uL (150.0-450.0) 04/10/21 05:44 Plt Count Comment Adequate (ADEQUATE) 04/10/21 05:44 MPV 7.5 fL (7.4-11.0) 04/10/21 05:44 Neut % (Auto) 90.3 % (42.0-75.0) H 04/10/21 05:44 Lymph % (Auto) 5.8 % (21.0-51.0) L 04/10/21 05:44 [place] % (Auto) 3.7 % (0.0-13.0) 04/10/21 05:44 Eos % (Auto) 0.0 % (0.9-2.9) L 04/10/21 05:44 Baso % (Auto) 0.2 % (0.2-1.0) 04/10/21 05:44 Neut # (Auto) 6.9 x10^3/uL (2.2-4.8) H 04/10/21 05:44 Lymph # (Auto) 0.4 X10^3/uL (1.3-2.9) L 04/10/21 05:44 [place] # (Auto) 0.3 x10^3/uL (0.3-0.8) 04/10/21 05:44 Eos # (Auto) 0.0 x10^3/uL (0.0-0.2) 04/10/21 05:44 Baso # (Auto) 0.0 X10^3/uL (0.0-0.1) 04/10/21 05:44 Absolute Nucleated RBC 0.0 /100WBC 04/10/21 05:44 Total Counted 100 04/10/21 05:44 Neutrophils % (Manual) 91 % (39-76) H 04/10/21 05:44 Lymphocytes % (Manual) 5 % (13-43) L 04/10/21 05:44 Monocytes % (Manual) 4 % (4-9) 04/10/21 05:44 Plt Morphology Comment Normal (NORMAL) 04/10/21 05:44 RBC Morphology Normal (NORMAL) 04/10/21 05:44 D-Dimer 0.65 ug/ml (0.0-0.57) H* 04/08/21 14:48 Sample Site Rrad 04/08/21 14:58 ABG pH 7.480 (7.35-7.45) H 04/08/21 14:58 ABG pCO2 41.0 mmHg (35.0-45.0) 04/08/21 14:58 ABG pO2 93.0 mmHg (80.0-100.0) 04/08/21 14:58 ABG HCO3 30.5 mmol/L (22-26) H* 04/08/21 14:58 ABG O2 Saturation 98.0 % (90-100) 04/08/21 14:58 ABG Base Excess 6.4 mmol/L (-2.0-2.0) H 04/08/21 14:58 Sreedhar Test Pos 04/08/21 14:58 A-a Gradient 55.0 mmHg 04/08/21 14:58 FiO2 28.0 04/08/21 14:58 Blood Gas Comments Pt lemuel well elj 04/08/21 14:58 Sodium 140 mmol/L (136-145) 04/10/21 05:44 Corrected Sodium 143 mmol/L (136-145) 04/10/21 05:44 Potassium 4.3 mmol/L (3.5-5.1) 04/10/21 05:44 Chloride 103 mmol/L (98-107) 04/10/21 05:44 Carbon Dioxide 26.7 mmol/L (21-32) 04/10/21 05:44 BUN 10 mg/dL (7-18) 04/10/21 05:44 Creatinine 0.96 mg/dL (0.70-1.30) 04/10/21 05:44 Est GFR (MDRD) Af Amer > 60 (>60) 04/10/21 05:44 Est GFR (MDRD) Non-Af > 60 (>60) 04/10/21 05:44 Glucose 232 mg/dL (65-99) H 04/10/21 05:44 Calcium 7.7 mg/dL (8.5-10.1) L 04/10/21 05:44 Corrected Calcium 8.8 mg/dL (8.5-10.1) 04/10/21 05:44 Total Bilirubin 0.50 mg/dL (0.2-1.0) 04/10/21 05:44 AST 15 Units/L (15-37) 04/10/21 05:44 ALT 97 Units/L (12-78) H 04/10/21 05:44 Alkaline Phosphatase 45 Units/L (46-116) L 04/10/21 05:44 Creatine Kinase 80 Units/L (39-308) 04/08/21 21:35 CK-MB (CK-2) < 1.0 ng/mL (0-4.0) 04/08/21 21:35 CK/CKMB % Calc 1.3 % (<4) 04/08/21 21:35 Troponin I High Sens 15.0 ng/L (4.0-60.0) 04/08/21 21:35 C-Reactive Protein 5.10 mg/L (0-3.0) H 04/08/21 14:48 Total Protein 5.6 g/dL (6.4-8.2) L 04/10/21 05:44 Albumin 2.6 g/dL (3.4-5.0) L 04/10/21 05:44 Globulin 3.0 g/dL (2.5-4.5) 04/10/21 05:44 Albumin/Globulin Ratio 0.9 Ratio (1.1-2.1) L 04/10/21 05:44 - Plan (1) Pneumonia Status: Acute Qualifiers: Pneumonia type: due to unspecified organism Laterality: bilateral Lung location: unspecified part of lung Qualified Code(s): J18.9 - Pneumonia, unspecified organism Plan: IV FLUIDS, IV ANTIBIOTICS, IV STEROIDS, NEB TX, TESSALON, TUSSIONEX, RESUME HOME MEDS, SUPPLEMENTAL OXYGEN (2) Hypoxia Status: Acute (3) Post-COVID syndrome Status: Acute
[2021-04-10] MEDS: CRESTOR TAB 10 MG PO SCH (23:00)
[2021-04-10] MEDS: INDERAL LA 60 MG CAP PO SCH (23:00)
[2021-04-10] MEDS: ZANAFLEX PO SCH (23:02)
[2021-04-11] MEDS: MOTRIN TAB 800 MG PO PRN (03:34)
[2021-04-11] MEDS: FORTAZ or TAZICEF VIAL INJ 1 G in NS 100 ML IV 100 ML IV SCH ×3 (05:24→21:20)
[2021-04-11] MEDS: SOLU-Medrol 40 MG VIAL IVP SCH ×3 (05:24→21:21)
[2021-04-11] MEDS: TESSALON PERLES PO SCH ×3 (05:24→21:18)
--- NOTE | 2021-04-11 05:43 | RAD ---
HISTORYSOB HTN, GB, TONSILSSTUDYCHEST, 1 [id number]/2022 theFINDINGSThe trachea is midline. The cardiac silhouette is unremarkable. Mild chronic interstitial markings throughout the lungs. No pleural effusion or pneumothorax. The lungs are clear without focal infiltrate or effusion. The bony thorax is unremarkable.IMPRESSIONStable portable chest.Electronically signed by: Jonatan Araujo (Apr 11, 2021 05:41:57)
[2021-04-11] MEDS: DUONEB 0.5 MG/3 MG (3 mL) NEB SCH ×2 (06:15→20:50)
[2021-04-11 06:56] LABS: BASOPHILS % (AUTO) 0.1 % (0.2-1.0); HEMOGLOBIN 13.8 g/dL (13.5-18.0); LYMPHOCYTES # (AUTO) 0.5 X10^3/uL (1.3-2.9); LYMPHOCYTES % (AUTO) 4.2 % (21.0-51.0); MEAN CORPUSCULAR HEMOGLOBIN 29.8 pg (27.0-34.0); MEAN CORPUSCULAR HGB CONC 33.6 g/dL (33.0-35.0); MEAN CORPUSCULAR VOLUME 88.8 fL (80.0-100.0); MEAN PLATELET VOLUME 7.5 fL (7.4-11.0); MONOCYTES # (AUTO) 0.5 x10^3/uL (0.3-0.8); MONOCYTES % (AUTO) 4.6 % (0.0-13.0); NEUTROPHILS # (AUTO) 9.9 x10^3/uL (2.2-4.8); NEUTROPHILS % (AUTO) 91.1 % (42.0-75.0); RED BLOOD COUNT 4.62 X10^6/uL (4.7-6.0); RED CELL DISTRIBUTION WIDTH 14.9 % (11.6-16.5); WHITE BLOOD COUNT 10.9 X10^3/uL (3.6-10.0)
[2021-04-11 07:18] LABS: ALANINE AMINOTRANSFERASE 77 Units/L (12-78); ALBUMIN 2.6 g/dL (3.4-5.0); ALKALINE PHOSPHATASE 41 Units/L (46-116); ASPARTATE AMINO TRANSFERASE 7 Units/L (15-37); BLOOD UREA NITROGEN 11 mg/dL (7-18); CALCIUM 7.7 mg/dL (8.5-10.1); CARBON DIOXIDE 23.4 mmol/L (21-32); CHLORIDE 108 mmol/L (98-107); COR CA(FOR HYPOALB) 8.8 mg/dL (8.5-10.1); COR NA(FOR HYPERGLY) 146 mmol/L (136-145); CREATININE 0.85 mg/dL (0.70-1.30); SODIUM 143 mmol/L (136-145); TOTAL PROTEIN 5.3 g/dL (6.4-8.2); eGFR NON BLACK RACES > 60 (>60)
[2021-04-11 07:37] LABS: BAND NEUTROPHILS % 1 % (0-10); PLATELET MORPHOLOGY COMMENT NORMAL (NORMAL)
[2021-04-11] MEDS: PULMICORT NEB TX 0.5 MG NEB SCH ×2 (08:50→20:50)
--- NOTE | 2021-04-11 09:22 | PCM.PROG ---
Progress Note - Progress Note for Day of Date of Exam: 04/11/21 - Subjective Subjective: WAS ADMITTED TO THE HOSPITAL FOR TREATMENT OF BRONCHOPNEUMONIA, HYPOXIA, POST COVID SYNDROME. TODAY, HE IS ALERT AND ORIENTED, LYING IN BED ON MORNING ROUNDS. HE CONTINUES WITH COMPLAINTS OF COUGH, SHORTNESS OF BREATH, AND GENERALIZED WEAKNESS. HE DENIES MEANINGFUL IMPROVEMENT IN SYM PTOMS SINCE YESTERDAY. HE IS CURRENTLY UTILIZING OXYGEN VIA NASAL CANNULA AT 2 LPM. HIS SATURATIONS HAVE BEEN 92-98% THIS MORNING AND THROUGHOUT THE NGT. HE HAS ALSO UTILIZED THE CPAP AT NIGHT. ON EXAMINATION, HE IS TACHYCARDIC WITH HR 110-120 BPM. BILATERAL LUNGS ARE NOTED WITH RHONCHI THROUGHOUT. HIS VITALS THIS MORNING ARE: 98.4-118-18-96%-129/60. LABS WERE OBTAINED. WBC 10.9, RBC 4.62, HCT 41.0, PLT COUNT 145, CHLORIDE 108, GLUCOSE 208, CALCIUM 7.7, AST 7, ALK PHOS 41, TOTAL PROTEIN 5.3, ALBUMIN 2.6. BLOOD CULTURES ARE PENDING. A CHEST XRAY WAS OBTAINED AND REVEALED: The trachea is midline. The cardiac silhouette is unremarkable. Mild chronic interstitial markings throughout the lungs. No pleural effusion or pneumothorax. The lungs are clear without focal infiltrate or effusion. The bony thorax is unremarkable. HE IS CURRENTLY RECEIVING NS AT 75 ML/HR, LEVAQUIN 750MG IV DAILY, FORTAZ 1G IV TID, SOLU-MEDROL 80MG IV Q8H, ROBITUSSIN DM 10ML PO QID, TESSALON PERLES 200MG PO TID, TUSSIONEX 5ML PO Q12H, DUONEBS TID, PULMICORT NEBS BID, VSL 2 CAPS PO DAILY, AND NORCO 10/325MG PO Q6H PRN PAIN. HIS HOME MEDICATIONS WERE RESUMED. WE WILL CONTINUE WITH CURRENT PLAN OF CARE TODAY. OTHERWISE, WE PLAN TO FOLLOW UP WITH AM LABS AND CHEST XRAY AND CONTINUE TO MONITOR. TIME SPENT ON CLINICAL ASSESSMENT, REVIEWING LABS AND IMAGING, DECISION MAKING, AND DOCUMENTATION WAS GREATER THAN 45 MINUTES. - Past Medical Family Social History Past Med/Fam/Surg Hx: No changes since H&P Allergies: Allergies No Known Drug Allergies Allergy (Verified 03/25/21 13:35) - Review of Systems ROS: No change since H&P - Vital Signs and I&O's Vital Signs: Temperature 98.4 F Pulse Rate [Right Brachial] 118 Pulse Rate 112 Respiratory Rate 21 Blood Pressure [Right Arm] 129/60 Blood Pressure [Left Arm] 135/82 O2 Sat by Pulse Oximetry 96 Intake and Output: Intake & Output 04/08/21 04/09/21 04/10/21 04/11/21 11:59 11:59 11:59 11:59 Intake Total 1933 4363 / 4363 2701 / 2701 Output Total 1200 / 1200 Balance 1933 3163 / 3163 2701 / 2701 - Physical Exam Oriented: Normal Eyes: Normal Ear: Normal Nose: Normal Throat: Normal Respiratory: Generalized, Diminished, Rhonchi Cardiovascular: Normal : Normal Auscultation: Bowel Sounds: Normal Palpation: Normal Tenderness: Normal Skin: Normal Musculoskeletal: Normal Psychiatric: Normal Mood Description: Calm Affect: Normal Speech Pattern: Clear, Appropriate - Laboratory and Diagnostics Result Diagrams: 04/11/21 05:30 04/11/21 05:30 Labs: 04/08/21 14:48 Blood Blood Culture - Preliminary 04/08/21 14:48 Blood Blood Culture - Preliminary Laboratory WBC 10.9 X10^3/uL (3.6-10.0) H 04/11/21 05:30 RBC 4.62 X10^6/uL (4.7-6.0) L 04/11/21 05:30 Hgb 13.8 g/dL (13.5-18.0) 04/11/21 05:30 Hct 41.0 % (42.0-54.0) L 04/11/21 05:30 MCV 88.8 fL (80.0-100.0) 04/11/21 05:30 MCH 29.8 pg (27.0-34.0) 04/11/21 05:30 MCHC 33.6 g/dL (33.0-35.0) 04/11/21 05:30 RDW 14.9 % (11.6-16.5) 04/11/21 05:30 Plt Count 145 X10^3/uL (150.0-450.0) L 04/11/21 05:30 Plt Count Comment Decreased (ADEQUATE) 04/11/21 05:30 MPV 7.5 fL (7.4-11.0) 04/11/21 05:30 Neut % (Auto) 91.1 % (42.0-75.0) H 04/11/21 05:30 Lymph % (Auto) 4.2 % (21.0-51.0) L 04/11/21 05:30 [place] % (Auto) 4.6 % (0.0-13.0) 04/11/21 05:30 Eos % (Auto) 0.0 % (0.9-2.9) L 04/11/21 05:30 Baso % (Auto) 0.1 % (0.2-1.0) L 04/11/21 05:30 Neut # (Auto) 9.9 x10^3/uL (2.2-4.8) H 04/11/21 05:30 Lymph # (Auto) 0.5 X10^3/uL (1.3-2.9) L 04/11/21 05:30 [place] # (Auto) 0.5 x10^3/uL (0.3-0.8) 04/11/21 05:30 Eos # (Auto) 0.0 x10^3/uL (0.0-0.2) 04/11/21 05:30 Baso # (Auto) 0.0 X10^3/uL (0.0-0.1) 04/11/21 05:30 Absolute Nucleated RBC 0.0 /100WBC 04/11/21 05:30 Total Counted 100 04/11/21 05:30 Neutrophils % (Manual) 92 % (39-76) H 04/11/21 05:30 Band Neutrophils % 1 % (0-10) 04/11/21 05:30 Lymphocytes % (Manual) 4 % (13-43) L 04/11/21 05:30 Monocytes % (Manual) 3 % (4-9) L 04/11/21 05:30 Plt Morphology Comment Normal (NORMAL) 04/11/21 05:30 RBC Morphology Normal (NORMAL) 04/11/21 05:30 D-Dimer 0.65 ug/ml (0.0-0.57) H* 04/08/21 14:48 Sample Site Rrad 04/08/21 14:58 ABG pH 7.480 (7.35-7.45) H 04/08/21 14:58 ABG pCO2 41.0 mmHg (35.0-45.0) 04/08/21 14:58 ABG pO2 93.0 mmHg (80.0-100.0) 04/08/21 14:58 ABG HCO3 30.5 mmol/L (22-26) H* 04/08/21 14:58 ABG O2 Saturation 98.0 % (90-100) 04/08/21 14:58 ABG Base Excess 6.4 mmol/L (-2.0-2.0) H 04/08/21 14:58 Sreedhar Test Pos 04/08/21 14:58 A-a Gradient 55.0 mmHg 04/08/21 14:58 FiO2 28.0 04/08/21 14:58 Blood Gas Comments Pt lemuel well elj 04/08/21 14:58 Sodium 143 mmol/L (136-145) 04/11/21 05:30 Corrected Sodium 146 mmol/L (136-145) H 04/11/21 05:30 Potassium 3.5 mmol/L (3.5-5.1) 04/11/21 05:30 Chloride 108 mmol/L (98-107) H 04/11/21 05:30 Carbon Dioxide 23.4 mmol/L (21-32) 04/11/21 05:30 BUN 11 mg/dL (7-18) 04/11/21 05:30 Creatinine 0.85 mg/dL (0.70-1.30) 04/11/21 05:30 Est GFR (MDRD) Af Amer > 60 (>60) 04/11/21 05:30 Est GFR (MDRD) Non-Af > 60 (>60) 04/11/21 05:30 Glucose 208 mg/dL (65-99) H 04/11/21 05:30 Calcium 7.7 mg/dL (8.5-10.1) L 04/11/21 05:30 Corrected Calcium 8.8 mg/dL (8.5-10.1) 04/11/21 05:30 Total Bilirubin 0.40 mg/dL (0.2-1.0) 04/11/21 05:30 AST 7 Units/L (15-37) L 04/11/21 05:30 ALT 77 Units/L (12-78) 04/11/21 05:30 Alkaline Phosphatase 41 Units/L (46-116) L 04/11/21 05:30 Creatine Kinase 80 Units/L (39-308) 04/08/21 21:35 CK-MB (CK-2) < 1.0 ng/mL (0-4.0) 04/08/21 21:35 CK/CKMB % Calc 1.3 % (<4) 04/08/21 21:35 Troponin I High Sens 15.0 ng/L (4.0-60.0) 04/08/21 21:35 C-Reactive Protein 5.10 mg/L (0-3.0) H 04/08/21 14:48 Total Protein 5.3 g/dL (6.4-8.2) L 04/11/21 05:30 Albumin 2.6 g/dL (3.4-5.0) L 04/11/21 05:30 Globulin 2.7 g/dL (2.5-4.5) 04/11/21 05:30 Albumin/Globulin Ratio 1.0 Ratio (1.1-2.1) L 04/11/21 05:30 - Plan (1) Pneumonia Status: Acute Qualifiers: Pneumonia type: due to unspecified organism Laterality: bilateral Lung location: unspecified part of lung Qualified Code(s): J18.9 - Pneumonia, unspecified organism Plan: IV FLUIDS, IV ANTIBIOTICS, IV STEROIDS, NEB TX, TESSALON, TUSSIONEX, RESUME HOME MEDS, SUPPLEMENTAL OXYGEN (2) Hypoxia Status: Acute (3) Post-COVID syndrome Status: Acute
[2021-04-11] MEDS ORDERED: K-DUR TAB 20 MEQ PO ONE (09:32)
[2021-04-11] MEDS: VSL#3 PO SCH (09:45)
[2021-04-11] MEDS: LEVAQUIN PREMIX IV 750 MG 750 MG/150 ML BAG IV SCH (09:45)
[2021-04-11] MEDS: TUSSIONEX PENNKINETIC SUSP PO SCH ×2 (09:45→21:19)
[2021-04-11] MEDS: ROBITUSSIN DM PO SCH ×4 (09:46→22:02)
[2021-04-11] MEDS ORDERED: NS 1/2 1,000 ML IV 1,000 ML IV ONE (09:47)
[2021-04-11] MEDS: NS 1/2 1,000 ML IV 1,000 ML IV SCH ×2 (13:38→19:42)
[2021-04-11] MEDS: ZANAFLEX PO SCH (21:18)
[2021-04-11] MEDS: NORCO 10/325 TAB PO PRN (21:18)
[2021-04-11] MEDS: CRESTOR TAB 10 MG PO SCH (22:02)
[2021-04-11] MEDS: INDERAL LA 60 MG CAP PO SCH (22:02)
[2021-04-12] MEDS ORDERED: NS 1/2 1,000 ML IV 1,000 ML IV ONE (02:10)
[2021-04-12] MEDS: NS 1/2 1,000 ML IV 1,000 ML IV SCH ×2 (02:13→17:56)
[2021-04-12] MEDS: MOTRIN TAB 800 MG PO PRN (03:53)
[2021-04-12] MEDS: DUONEB 0.5 MG/3 MG (3 mL) NEB SCH ×3 (05:07→21:07)
[2021-04-12] MEDS: SOLU-Medrol 40 MG VIAL IVP SCH ×3 (05:25→21:41)
[2021-04-12] MEDS: FORTAZ or TAZICEF VIAL INJ 1 G in NS 100 ML IV 100 ML IV SCH ×2 (05:25→14:14)
[2021-04-12] MEDS: TESSALON PERLES PO SCH (05:25)
--- NOTE | 2021-04-12 05:26 | RAD ---
HISTORYSOB HTN, GB, TONSILSSTUDYCHEST, 1 [id number] trachea is midline. The cardiac silhouette is unremarkable. The lungs are clear without focal infiltrate or effusion. The bony thorax is unremarkable.IMPRESSIONNo acute cardiopulmonary findings .Electronically signed by: Jonatan Araujo (Apr 12, 2021 05:25:12)
[2021-04-12 06:15] LABS: BASOPHILS % (AUTO) 0.1 % (0.2-1.0); HEMATOCRIT 39.8 % (42.0-54.0); HEMOGLOBIN 13.3 g/dL (13.5-18.0); LYMPHOCYTES # (AUTO) 0.4 X10^3/uL (1.3-2.9); LYMPHOCYTES % (AUTO) 3.7 % (21.0-51.0); MEAN CORPUSCULAR HEMOGLOBIN 29.8 pg (27.0-34.0); MEAN CORPUSCULAR HGB CONC 33.3 g/dL (33.0-35.0); MEAN CORPUSCULAR VOLUME 89.4 fL (80.0-100.0); MEAN PLATELET VOLUME 7.1 fL (7.4-11.0); MONOCYTES # (AUTO) 0.4 x10^3/uL (0.3-0.8); MONOCYTES % (AUTO) 4.1 % (0.0-13.0); NEUTROPHILS # (AUTO) 9.7 x10^3/uL (2.2-4.8); NEUTROPHILS % (AUTO) 92.1 % (42.0-75.0); RED BLOOD COUNT 4.45 X10^6/uL (4.7-6.0); WHITE BLOOD COUNT 10.6 X10^3/uL (3.6-10.0)
[2021-04-12 06:26] LABS: ALANINE AMINOTRANSFERASE 69 Units/L (12-78); ALBUMIN 2.5 g/dL (3.4-5.0); ALKALINE PHOSPHATASE 38 Units/L (46-116); ASPARTATE AMINO TRANSFERASE 7 Units/L (15-37); BLOOD UREA NITROGEN 14 mg/dL (7-18); CALCIUM 7.8 mg/dL (8.5-10.1); CARBON DIOXIDE 25.6 mmol/L (21-32); CHLORIDE 107 mmol/L (98-107); COR NA(FOR HYPERGLY) 144 mmol/L (136-145); CREATININE 1.08 mg/dL (0.70-1.30); SODIUM 142 mmol/L (136-145); TOTAL PROTEIN 5.1 g/dL (6.4-8.2); eGFR NON BLACK RACES > 60 (>60)
[2021-04-12 06:59] LABS: BAND NEUTROPHILS % 1 % (0-10); PLATELET MORPHOLOGY COMMENT NORMAL (NORMAL)
[2021-04-12] MEDS: PULMICORT NEB TX 0.5 MG NEB SCH ×2 (08:25→21:07)
[2021-04-12] MEDS ORDERED: POTASSIUM CHL 40 MEQ/NS 0.45% 500 ML IV PRN (08:32)
[2021-04-12] MEDS ORDERED: KLOR-CON PO PRN (08:32)
[2021-04-12] MEDS ORDERED: MICRO K EXTEN CAP 10 MEQ PO PRN (08:32)
[2021-04-12] MEDS ORDERED: K-DUR TAB 20 MEQ PO PRN (08:32)
[2021-04-12] MEDS ORDERED: POTASSIUM CHLORIDE LIQ 20 MEQ UDC PO PRN (08:32)
[2021-04-12] MEDS ORDERED: K-RIDER 10 MEQ/NS 100 ML 10 MEQ/100 ML BAG IV PRN (08:32)
[2021-04-12] MEDS ORDERED: POTASSIUM CHL 60 MEQ/NS 0.45% 500 ML IV PRN (08:32)
[2021-04-12] MEDS: ROBITUSSIN DM PO SCH (08:42)
[2021-04-12] MEDS: LEVAQUIN PREMIX IV 750 MG 750 MG/150 ML BAG IV SCH (09:05)
[2021-04-12] MEDS: VSL#3 PO SCH (09:05)
--- NOTE | 2021-04-12 09:50 | PCM.PROG ---
Progress Note - Progress Note for Day of Date of Exam: 04/12/21 - Subjective Subjective: WAS ADMITTED TO THE HOSPITAL FOR TREATMENT OF BRONCHOPNEUMONIA, HYPOXIA, POST COVID SYNDROME. TODAY, HE IS ALERT AND ORIENTED, LYING IN BED ON MORNING ROUNDS. HE CONTINUES WITH COMPLAINTS OF COUGH, SHORTNESS OF BREATH, AND GENERALIZED WEAKNESS. HE REPORTS INCREASE IN SHORTNESS OF BREATH TODAY. HE REPORTS FEELING LIKE HE HAS MUCOUS TO COUGH UP, BUT IS UNABLE TO. HE IS CURRENTLY UTILIZING OXYGEN VIA NASAL CANNULA AT 2 LPM. HIS SATURATIONS HAVE BEEN 94-98% THIS MORNING AND THROUGHOUT THE NIGHT. HE HAS ALSO UTILIZED THE CPAP AT NIGHT. ON EXAMINATION, HEART IS REGULAR IN RATE AND RHYTHM. BILATERAL LUNGS ARE NOTED WITH RHONCHI THROUGHOUT. HIS VITALS THIS MORNING ARE: 98.0-98-16-95%- 148/79. LABS WERE OBTAINED. WBC 10.6, HGB 13.3, HCT 39.8, PLT COUNT 129, SODIUM 142, POTASSIUM 3.6, CHLORIDE 107, BUN 14, CREATININE 1.8, GLUCOSE 180, CALCIUM 7.8, AST 7, ALK PHOS 38, TOTAL PROTEIN 5.1, ALBUMIN 2.5. BLOOD CULTURES ARE PENDING. A CHEST XRAY WAS OBTAINED AND REVEALED: The trachea is midline. The cardiac silhouette is unremarkable. The lungs are clear without focal infiltrate or effusion. The bony thorax is unremarkable. HE IS CURRENTLY RECEIVING NS AT 75 ML/HR, LEVAQUIN 750MG IV DAILY, FORTAZ 1G IV TID, SOLU-MEDROL 80MG IV Q8H, ROBITUSSIN DM 10ML PO QID, TESSALON PERLES 200MG PO TID, TUSSIONEX 5ML PO Q12H, DUONEBS TID, PULMICORT NEBS BID, VSL 2 CAPS PO DAILY, AND NORCO 10/325MG PO Q6H PRN PAIN. HIS HOME MEDICATIONS WERE RESUMED. TODAY, WE WILL DISCONTINUE THE TESSALON PERLES, TUSSIONEX, AND ROBITUSSIN. WE WILL ADD MUCINEX 1200MG PO BID AND CLARITIN D 1 TAB PO Q12H. OTHERWISE, WE PLAN TO FOLLOW UP WITH AM LABS AND CHEST XRAY AND CONTINUE TO MONITOR. TIME SPENT ON CLINICAL ASSESSMENT, REVIEWING LABS AND IMAGING, DECISION MAKING, AND DOCUMENTATION WAS GREATER THAN 45 M INUTES. - Past Medical Family Social History Past Med/Fam/Surg Hx: No changes since H&P Allergies: Allergies No Known Drug Allergies Allergy (Verified 03/25/21 13:35) - Review of Systems ROS: No change since H&P - Vital Signs and I&O's Vital Signs: Temperature 98.0 F Pulse Rate [Right Brachial] 98 Pulse Rate 109 Respiratory Rate 96 Blood Pressure [Right Arm] 148/79 Blood Pressure [Left Arm] 135/82 O2 Sat by Pulse Oximetry 98 Intake and Output: Intake & Output 04/09/21 04/10/21 04/11/21 04/12/21 11:59 11:59 11:59 11:59 Intake Total 1933 4363 / 4363 2701 / 2701 4684 / 4684 Output Total 1200 / 1200 1050 / 1050 Balance 1933 3163 / 3163 2701 / 2701 3634 / 3634 - Physical Exam Oriented: Normal Eyes: Normal Ear: Normal Nose: Normal Throat: Normal Respiratory: Generalized, Diminished, Rhonchi Cardiovascular: Normal : Normal Auscultation: Bowel Sounds: Normal Tenderness: Normal Skin: Normal Musculoskeletal: Normal Psychiatric: Normal Mood Description: Calm Affect: Normal Speech Pattern: Clear, Appropriate - Laboratory and Diagnostics Result Diagrams: 04/12/21 05:39 04/12/21 05:39 Labs: 04/08/21 14:48 Blood Blood Culture - Preliminary 04/08/21 14:48 Blood Blood Culture - Preliminary Laboratory WBC 10.6 X10^3/uL (3.6-10.0) H 04/12/21 05:39 RBC 4.45 X10^6/uL (4.7-6.0) L 04/12/21 05:39 Hgb 13.3 g/dL (13.5-18.0) L 04/12/21 05:39 Hct 39.8 % (42.0-54.0) L 04/12/21 05:39 MCV 89.4 fL (80.0-100.0) 04/12/21 05:39 MCH 29.8 pg (27.0-34.0) 04/12/21 05:39 MCHC 33.3 g/dL (33.0-35.0) 04/12/21 05:39 RDW 15.0 % (11.6-16.5) 04/12/21 05:39 Plt Count 129 X10^3/uL (150.0-450.0) L 04/12/21 05:39 Plt Count Comment Decreased (ADEQUATE) 04/12/21 05:39 MPV 7.1 fL (7.4-11.0) L 04/12/21 05:39 Neut % (Auto) 92.1 % (42.0-75.0) H 04/12/21 05:39 Lymph % (Auto) 3.7 % (21.0-51.0) L 04/12/21 05:39 [place] % (Auto) 4.1 % (0.0-13.0) 04/12/21 05:39 Eos % (Auto) 0.0 % (0.9-2.9) L 04/12/21 05:39 Baso % (Auto) 0.1 % (0.2-1.0) L 04/12/21 05:39 Neut # (Auto) 9.7 x10^3/uL (2.2-4.8) H 04/12/21 05:39 Lymph # (Auto) 0.4 X10^3/uL (1.3-2.9) L 04/12/21 05:39 [place] # (Auto) 0.4 x10^3/uL (0.3-0.8) 04/12/21 05:39 Eos # (Auto) 0.0 x10^3/uL (0.0-0.2) 04/12/21 05:39 Baso # (Auto) 0.0 X10^3/uL (0.0-0.1) 04/12/21 05:39 Absolute Nucleated RBC 0.0 /100WBC 04/12/21 05:39 Total Counted 100 04/12/21 05:39 Neutrophils % (Manual) 92 % (39-76) H 04/12/21 05:39 Band Neutrophils % 1 % (0-10) 04/12/21 05:39 Lymphocytes % (Manual) 6 % (13-43) L 04/12/21 05:39 Monocytes % (Manual) 1 % (4-9) L 04/12/21 05:39 Plt Morphology Comment Normal (NORMAL) 04/12/21 05:39 RBC Morphology Normal (NORMAL) 04/12/21 05:39 D-Dimer 0.65 ug/ml (0.0-0.57) H* 04/08/21 14:48 Sample Site Rrad 04/08/21 14:58 ABG pH 7.480 (7.35-7.45) H 04/08/21 14:58 ABG pCO2 41.0 mmHg (35.0-45.0) 04/08/21 14:58 ABG pO2 93.0 mmHg (80.0-100.0) 04/08/21 14:58 ABG HCO3 30.5 mmol/L (22-26) H* 04/08/21 14:58 ABG O2 Saturation 98.0 % (90-100) 04/08/21 14:58 ABG Base Excess 6.4 mmol/L (-2.0-2.0) H 04/08/21 14:58 Sreedhar Test Pos 04/08/21 14:58 A-a Gradient 55.0 mmHg 04/08/21 14:58 FiO2 28.0 04/08/21 14:58 Blood Gas Comments Pt lemuel well elj 04/08/21 14:58 Sodium 142 mmol/L (136-145) 04/12/21 05:39 Corrected Sodium 144 mmol/L (136-145) 04/12/21 05:39 Potassium 3.6 mmol/L (3.5-5.1) 04/12/21 05:39 Chloride 107 mmol/L (98-107) 04/12/21 05:39 Carbon Dioxide 25.6 mmol/L (21-32) 04/12/21 05:39 BUN 14 mg/dL (7-18) 04/12/21 05:39 Creatinine 1.08 mg/dL (0.70-1.30) 04/12/21 05:39 Est GFR (MDRD) Af Amer > 60 (>60) 04/12/21 05:39 Est GFR (MDRD) Non-Af > 60 (>60) 04/12/21 05:39 Glucose 180 mg/dL (65-99) H 04/12/21 05:39 Calcium 7.8 mg/dL (8.5-10.1) L 04/12/21 05:39 Corrected Calcium 9.0 mg/dL (8.5-10.1) 04/12/21 05:39 Magnesium 2.0 mg/dL (1.7-2.9) 04/12/21 05:39 Total Bilirubin 0.40 mg/dL (0.2-1.0) 04/12/21 05:39 AST 7 Units/L (15-37) L 04/12/21 05:39 ALT 69 Units/L (12-78) 04/12/21 05:39 Alkaline Phosphatase 38 Units/L (46-116) L 04/12/21 05:39 Creatine Kinase 80 Units/L (39-308) 04/08/21 21:35 CK-MB (CK-2) < 1.0 ng/mL (0-4.0) 04/08/21 21:35 CK/CKMB % Calc 1.3 % (<4) 04/08/21 21:35 Troponin I High Sens 15.0 ng/L (4.0-60.0) 04/08/21 21:35 C-Reactive Protein 5.10 mg/L (0-3.0) H 04/08/21 14:48 Total Protein 5.1 g/dL (6.4-8.2) L 04/12/21 05:39 Albumin 2.5 g/dL (3.4-5.0) L 04/12/21 05:39 Globulin 2.6 g/dL (2.5-4.5) 04/12/21 05:39 Albumin/Globulin Ratio 1.0 Ratio (1.1-2.1) L 04/12/21 05:39 - Plan (1) Pneumonia Status: Acute Qualifiers: Pneumonia type: due to unspecified organism Laterality: bilateral Lung location: unspecified part of lung Qualified Code(s): J18.9 - Pneumonia, unspecified organism Plan: IV FLUIDS, IV ANTIBIOTICS, IV STEROIDS, NEB TX, CLARITIN D Q12H, MUCINEX Q12H, RESUME HOME MEDS, SUPPLEMENTAL OXYGEN (2) Hypoxia Status: Acute (3) Post-COVID syndrome Status: Acute
[2021-04-12] MEDS: MUCINEX EXPECTORANT PO SCH ×2 (12:00→20:30)
[2021-04-12] MEDS: CLARITIN-D 12 HOUR TAB PO SCH ×2 (14:14→20:30)
[2021-04-12] MEDS ORDERED: FIORICET TAB PO PRN (14:25)
[2021-04-12] MEDS: KLONOPIN TAB 0.5 MG PO PRN ×2 (15:36→20:30)
[2021-04-12] MEDS: ZOSYN VIAL 3.375 GRAMS 3.375 G in NS 100 ML IV 100 ML IV SCH ×2 (17:00→21:10)
[2021-04-12] MEDS: ZANAFLEX PO SCH (20:30)
[2021-04-12] MEDS: CRESTOR TAB 10 MG PO SCH (21:09)
[2021-04-12] MEDS: INDERAL LA 60 MG CAP PO SCH (21:10)
[2021-04-12] MEDS: NORCO 10/325 TAB PO PRN (21:11)
[2021-04-13] MEDS ORDERED: NS 1/2 1,000 ML IV 1,000 ML IV ONE (00:19)
[2021-04-13] MEDS: NS 1/2 1,000 ML IV 1,000 ML IV SCH ×2 (03:06→08:55)
[2021-04-13] MEDS: ZOSYN VIAL 3.375 GRAMS 3.375 G in NS 100 ML IV 100 ML IV SCH (05:07)
[2021-04-13] MEDS: SOLU-Medrol 40 MG VIAL IVP SCH (05:07)
--- NOTE | 2021-04-13 05:18 | RAD ---
HISTORYSOB HTN, GB, TONSILSSTUDYCHEST, 1 [id number] trachea is midline. The cardiac silhouette is unremarkable. The lungs are clear without focal infiltrate or effusion. The bony thorax is unremarkable.IMPRESSIONNo acute cardiopulmonary findings .Electronically signed by: Jonatan Araujo (Apr 13, 2021 05:16:26)
[2021-04-13 05:25] LABS: BASOPHILS % (AUTO) 0.3 % (0.2-1.0); HEMATOCRIT 38.8 % (42.0-54.0); LYMPHOCYTES # (AUTO) 0.3 X10^3/uL (1.3-2.9); LYMPHOCYTES % (AUTO) 3.2 % (21.0-51.0); MEAN CORPUSCULAR HEMOGLOBIN 29.6 pg (27.0-34.0); MEAN CORPUSCULAR HGB CONC 33.5 g/dL (33.0-35.0); MEAN CORPUSCULAR VOLUME 88.2 fL (80.0-100.0); MEAN PLATELET VOLUME 7.4 fL (7.4-11.0); MONOCYTES # (AUTO) 0.5 x10^3/uL (0.3-0.8); MONOCYTES % (AUTO) 5.5 % (0.0-13.0); NEUTROPHILS # (AUTO) 8.7 x10^3/uL (2.2-4.8); RED CELL DISTRIBUTION WIDTH 14.8 % (11.6-16.5); WHITE BLOOD COUNT 9.6 X10^3/uL (3.6-10.0)
[2021-04-13 06:02] LABS: ALANINE AMINOTRANSFERASE 63 Units/L (12-78); ALBUMIN 2.4 g/dL (3.4-5.0); ALKALINE PHOSPHATASE 35 Units/L (46-116); ASPARTATE AMINO TRANSFERASE 13 Units/L (15-37); BLOOD UREA NITROGEN 14 mg/dL (7-18); CALCIUM 7.6 mg/dL (8.5-10.1); CARBON DIOXIDE 26.6 mmol/L (21-32); CHLORIDE 106 mmol/L (98-107); COR CA(FOR HYPOALB) 8.9 mg/dL (8.5-10.1); COR NA(FOR HYPERGLY) 142 mmol/L (136-145); CREATININE 0.82 mg/dL (0.70-1.30); SODIUM 141 mmol/L (136-145); TOTAL PROTEIN 4.9 g/dL (6.4-8.2); eGFR NON BLACK RACES > 60 (>60)
[2021-04-13] MEDS: DUONEB 0.5 MG/3 MG (3 mL) NEB SCH (06:15)
[2021-04-13 06:32] LABS: PLATELET MORPHOLOGY COMMENT NORMAL (NORMAL)
[2021-04-13 08:05] VITALS: BP 126/65
[2021-04-13] MEDS: PULMICORT NEB TX 0.5 MG NEB SCH (08:25)
[2021-04-13] MEDS: CLARITIN-D 12 HOUR TAB PO SCH (08:55)
[2021-04-13] MEDS: MUCINEX EXPECTORANT PO SCH (08:56)
[2021-04-13] MEDS: VSL#3 PO SCH (08:56)
[2021-04-13] MEDS: LEVAQUIN PREMIX IV 750 MG 750 MG/150 ML BAG IV SCH (08:56)
== END 2021-04-13 11:35 | disposition home or self-care (01) ==
LOC: MED/SURG
PROVIDERS: ADMIT Internal Medicine; ATTEND Internal Medicine